=== PATIENT | male | born 1985 | race Caucasian/White ===

== ENCOUNTER 2024-03-15 18:34 | Emergency (ER) | payer MEDICAID, OTHER ==
[~2024-03-15] VITALS: Ht 177.8 cm; Wt 110.0 kg
[2024-03-15] MEDS: ondansetron/PF 4mg/2ml inj IV ONE (19:43)
[2024-03-15] MEDS: pantoprazole 40 MG vial IV ONE (19:43)
[2024-03-15] MEDS: normal saline 1000ML IV soln IVB ONE ×2 (19:43→21:54)
[2024-03-15 20:25] LABS: URINE AMPHETAMINE SCREEN NEGATIVE (Neg); URINE BARBITUATE SCREEN NEGATIVE (Neg); URINE BENZODIAZEPINES SCREEN POSITIVE (Neg); URINE CANNABINOID SCREEN POSITIVE (Neg); URINE COCAINE SCREEN NEGATIVE (Neg); URINE METHADONE SCREEN NEGATIVE (Neg); URINE PHENCYCLIDINE SCREEN NEGATIVE (Neg)
[2024-03-15 20:42] LABS: BASOPHILS % (AUTO) 0.7 % (0-1); EOSINOPHILS # (AUTO) 0.2 X10'3 (0-0.9); EOSINOPHILS % (AUTO) 3.1 % (0-6); HEMATOCRIT 40.1 % (42.0-52.0); HEMOGLOBIN 13.9 g/dl (14.0-17.9); LYMPHOCYTES # (AUTO) 1.9 X10'3 (1.1-4.8); MEAN CORPUSCULAR HEMOGLOBIN 33.5 PG (27.0-31.0); MEAN CORPUSCULAR HGB CONC 34.6 g/dL (33.0-36.5); MEAN CORPUSCULAR VOLUME 96.9 FL (78-98); MONOCYTES # (AUTO) 0.4 X10'3 (0-0.9); MONOCYTES % (AUTO) 5.1 % (2-12); NEUTROPHILS # (AUTO) 4.6 X10'3 (1.8-7.7); NEUTROPHILS % (AUTO) 64.1 % (42-75); PLATELET COUNT 235 X10'3 (140-440); RED BLOOD COUNT 4.14 X10'6 (4.70-6.10); RED CELL DISTRIBUTION WIDTH 14.2 % (11.5-14.5); WHITE BLOOD COUNT 7.2 X10'3 (4.5-11.0)
[2024-03-15 20:56] LABS: INR 1.2 INR; PROTHROMBIN TIME 12.3 SECONDS (9.0-12.0)
[2024-03-15 21:02] LABS: ALBUMIN 3.5 G/DL (3.4-5.0); ANION GAP 5 (8-16); BLOOD UREA NITROGEN 6 MG/DL (7-18); BUN/CREATININE RATIO 8.6 (10.0-20.0); CALCIUM 7.6 MG/DL (8.5-10.1); CHLORIDE 104 MMOL/L (99-107); ETHANOL 334 MG/DL (<10); GLUCOSE 106 MG/DL (70-104); LIPASE 142 U/L (16-77); POTASSIUM 3.8 MMOL/L (3.5-5.1); SODIUM 139 MMOL/L (135-145); TOTAL CARBON DIOXIDE 29.7 MMOL/L (24-32); eCRCL 149 ML/MIN; eGFR > 90 ML/MIN
[2024-03-15] MEDS: nicotine 14mg patch - 24hr TD STA (23:04)
[2024-03-16 00:06] LABS: ALANINE AMINOTRANSFERASE 33 U/L (12-78); ALBUMIN/GLOBULIN RATIO 1.3 (1.1-1.5); ALKALINE PHOSPHATASE 39 IU/L (46-116); ASPARTATE AMINO TRANSFERASE 36 U/L (10-37); BILIRUBIN,TOTAL 2.7 MG/DL (0.1-1.0); TOTAL PROTEIN 6.2 G/DL (6.4-8.2)
[2024-03-16 00:22] LABS: BILIRUBIN,DIRECT 0.4 MG/DL (0-0.3)
[2024-03-16 06:50] VITALS: BP 112/53; PULSE 95; RESP 19; TEMP 98.5; O2SAT 98
== END 2024-03-16 06:56 | disposition home or self-care (01) ==
LOC: ER 18:34
DX: F10.129 Alcohol abuse with intoxication, unspecified (principal); R51.9 Headache, unspecified; R42 Dizziness and giddiness; R79.1 Abnormal coagulation profile; Y90.9 Presence of alcohol in blood, level not specified
CPT/HCPCS: 36415; 80048; 80076; 80305; 80320; 83690; 85025; 85610; 93005; 96361; 96374; 96375; 99284; C9113; J2405; J7030